=== PATIENT | female | born 1930 ===

== ENCOUNTER 2017-01-25 12:38 | Emergency (ER) | payer SELFPAY ==
--- NOTE | 2017-02-02 09:28 | ER ---
ADMIT: 01/25/2017 RM/LOC: ER [facility] MR#: [id number] [place], [place] [id number] [place] [address] Emergency Room Report SEX: F AGE: 86 : 1930 DATE: 01/25/2017 HISTORY OF PRESENT ILLNESS: Ms. Schmidt is an 86-year-old, female from [facility], in here for treatment of high blood pressure. She says for 7 days she has been without her ramipril because she took it and her lips got very swollen, and so she was concerned about an allergic reaction, so she stopped AMY inhibitor immediately, and then after that, she had issues with her blood pressure where she has not been able to get it down to a normal level. REVIEW OF SYSTEMS: Otherwise, negative. She denies any nausea, vomiting, headache, or dizziness. PAST MEDICAL HISTORY: Hypertension. PAST SURGICAL HISTORY: She has had; 1. Cholecystectomy. 2. Rectal surgery. 3. Hysterectomy. ALLERGIES: SHE IS ALLERGIC TO RAMIPRIL NOW. PHYSICAL EXAMINATION: VITAL SIGNS: Blood pressure 255/109, with a heart rate of 95, respirations 20, temp 97.9, and O2 sats 95%. GENERAL: She is alert and oriented. HEENT: Normal inspection. SKIN: Quite edematous in her cheeks. Non-diaphoretic. CHEST: No chest pain. Respiration within normal limits. Chest is nontender. EXTREMITIES: Well perfused. No edema noted. LABORATORY DATA: Basic labs; CBC within normal limits. Chemistry normal as well with a glucose of 103. HOSPITAL COURSE: Blood pressure improved greatly with a clonidine 0.1 mg p.o. She was discharged with a blood pressure 160/75, feeling really good, so I went ahead and gave her a prescription for clonidine 0.1 mg to use it daily once a day for 7 days. In the mean time, she needs to get an appointment with primary provider for evaluation of her medications and her hypertensive urgency. IMPRESSION: Hypertensive urgency. The patient was discharged home. HAO Locke / Terry Sheets MD / harrisonl JOB #: [id number] CC: Terry Sheets MD, Attending Physician ADMIT: 01/25/2017 RM/LOC: [facility] MR#: [id number] [place], [place] [id number] [place] [address] Emergency Room Report SEX: F AGE: 86 : 1930 Hanna Leon MD, Family Physician
== END 2017-01-25 14:47 | disposition home or self-care (01) ==
LOC: ER 12:38
DX: I16.0 Hypertensive urgency (principal); Z90.49 Acquired absence of other specified parts of digestive tract; Z90.710 Acquired absence of both cervix and uterus; Z98.890 Other specified postprocedural states; Z88.8 Allergy status to other drugs, medicaments and biological substances; Z79.899 Other long term (current) drug therapy